=== PATIENT | female | born 1960 | race Two or more races ===

== ENCOUNTER → 2017-09-28 | Outpatient (CLI) | payer MEDICAID ==
[~2017-09-28] VITALS: Ht 152.4 cm; Wt 56.2 kg
[~2017-09-28] MED LIST: ADENOSINE 47 MG in GIVE UN-DILUTED 0 ML IV ONE; ADENOSINE 90 MG/30 ML INJ IV ONE
== END | disposition home or self-care (01) ==
LOC: Rad HDHVI 09:42
PROVIDERS: ATTEND Internal Medicine Cardiovascular Disease
DX: Z01.818 Encounter for other preprocedural examination (principal); E66.9 Obesity, unspecified; I51.7 Cardiomegaly; I63.9 Cerebral infarction, unspecified; Z86.79 Personal history of other diseases of the circulatory system; Z86.39 Personal history of other endocrine, nutritional and metabolic disease; I62.9 Nontraumatic intracranial hemorrhage, unspecified
CPT/HCPCS: 78452; 93005; 93306; 96374; 96375; A9500; J0153